=== PATIENT | male | born 1960 | race Caucasian/White ===

== ENCOUNTER 2017-12-25 20:06 | Inpatient (IN) | payer OTHER ==
[~2017-12-25] VITALS: Ht 172.7 cm; Wt 81.6 kg
[~2017-12-25 20:06] MED LIST: BREO ELLIPTA 21 EACH; FLOVENT DISKUS50 MCG; INTEGRA PLUS C1 EACH PO; NEXIUM20 M1; SINGULAIR 10MG10 MG; ZYRTEC10 M3
[2017-12-25] MEDS ORDERED: BREO ELLIPTA 21 EACH (20:18)
[2017-12-25] MEDS ORDERED: PROTECT PLUS S1 EACH (20:19)
[2017-12-25] MEDS ORDERED: MONTELUKAST SOD10 MG (20:19)
[2017-12-25] MEDS ORDERED: FOLIVANE-PLUS1 EACH (20:19)
== END 2017-12-29 17:43 | disposition home or self-care (01) | DRG 812 ==
LOC: ER 20:06 → SEC-K 12-26 09:30 → MEDI 12-26 09:30
PROC: 30233N1 Transfusion of Nonautologous Red Blood Cells into Peripheral Vein, Percutaneous Approach (ICD-10-PCS; principal; 2017-12-26)
PROC: B246ZZZ Ultrasonography of Right and Left Heart (ICD-10-PCS; 2017-12-27)
PROC: BW21Y0Z Computerized Tomography (CT Scan) of Abdomen and Pelvis using Other Contrast, Unenhanced and Enhanced (ICD-10-PCS; 2017-12-27)
DX: D50.8 Other iron deficiency anemias (principal); R55 Syncope and collapse

== ENCOUNTER 2018-01-03 23:55 | Inpatient (IN) | payer OTHER ==
[~2018-01-03] VITALS: Ht 170.2 cm; Wt 188.0 kg
[~2018-01-03 23:55] MED LIST changes: +FOLIVANE-PLUS1 EACH; +MONTELUKAST SOD10 MG; +PROTECT PLUS S1 EACH
== END 2018-01-08 17:12 | disposition home or self-care (01) | DRG 812 ==
LOC: ER 23:55 → SURH 01-04 08:58 → SEC-K 01-04 08:58 → SURH 01-04 17:14
PROC: 30233N1 Transfusion of Nonautologous Red Blood Cells into Peripheral Vein, Percutaneous Approach (ICD-10-PCS; 2018-01-04)
PROC: 4A033R1 Measurement of Arterial Saturation, Peripheral, Percutaneous Approach (ICD-10-PCS; 2018-01-04)
PROC: 3E0F7GC Introduction of Other Therapeutic Substance into Respiratory Tract, Via Natural or Artificial Opening (ICD-10-PCS; 2018-01-04)
PROC: 07DR3ZX Extraction of Iliac Bone Marrow, Percutaneous Approach, Diagnostic (ICD-10-PCS; principal; 2018-01-08)
DX: D46.0 Refractory anemia without ring sideroblasts, so stated (principal); D50.8 Other iron deficiency anemias; J45.998 Other asthma; R55 Syncope and collapse

== ENCOUNTER 2018-01-11 11:30 | Emergency (ER) | payer OTHER ==
[~2018-01-11] VITALS: Ht 172.7 cm; Wt 84.4 kg
== END 2018-01-12 01:00 | disposition home or self-care (01) ==
LOC: ER 11:30
DX: R55 Syncope and collapse (principal); D64.89 Other specified anemias
CPT/HCPCS: 93005; 36430; 86904; 86922; P9021; 70450